=== PATIENT | female | born 1975 | race Caucasian/White ===

== ENCOUNTER 2017-09-25 21:19 | Emergency (ER) | payer BC ==
--- NOTE | 2017-09-25 22:26 | ED ---
Bernie Clayton Nilda, scribed for Corbin Ramos MD on 09/25/17 at 2217 . Laceration/Wound HPI - HPI Summary HPI Summary: This patient is a 41 year old F presenting to [facility] accompanied by with a chief complaint of bleeding from a surgical wound since 1600 today. Pt states she had a laparoscopic tubal ligation procedure today at [facility] and was discharged at 1500. She reports that her upper incision on periumbilical area of abdomen that was originally glued sustained a small tear which "won't stop bleeding." Symptoms aggravated by movement and alleviated by nothing including compression [employer]. The patient rates the pain 1/10 in severity. - History of Current Complaint Stated Complaint: STOMACH LAC/WONT STOP BLEEDING Time Seen by Provider: 09/25/17 21:46 Hx Obtained From: Patient Hx Last Menstrual Period: 03/11/16 Onset/Duration: Sudden Onset, Lasting Hours, Still Present Aggravating: Movement Alleviating: Nothing Timing: Constant Current Severity: Mild Pain Intensity: 1 Pain Scale Used: 0-10 Numeric - Allergy/Home Medications Allergies/Adverse Reactions: Allergies Allergy/AdvReac Type Severity Reaction Status Date / Time Penicillins [PCN] Allergy Severe Anaphylatic Verified 12/24/16 08:19 Shock Potassium Allergy Severe Nausea And Verified 12/24/16 08:19 Vomiting PMH/Surg Hx/FS Hx/Imm Hx Endocrine/Hematology History: Denies: Hx Diabetes, Hx Thyroid Disease Cardiovascular History: Denies: Hx Hypertension, Hx Pacemaker/ICD Respiratory History: Denies: Hx Asthma, Hx Chronic Obstructive Pulmonary Disease (COPD) GI History: Denies: Hx Ulcer History: Denies: Hx Dialysis, Hx Renal Disease Sensory History: Denies: Hx Hearing Aid Psychiatric History: Denies: Hx Panic Disorder - Cancer History Cancer Type, Location and Year: LEFT BREAST - Surgical History Surgery Procedure, Year, and Place: LEFT WRIST SURGERY-HARDWARE REMOVED 05/1996; . HALO FROM CSPINE FX - REMOVED;. LEFT BREAST BIOPSY-WITH CLIP 10/2016. Left mastectomy 11/29/16 Infectious Disease History: No Infectious Disease History: Denies: Hx Hepatitis, Hx Human Immunodeficiency Virus (HIV), Traveled Outside the [place] in Last 30 Days - Family History Known Family History: Negative: Hypertension, Diabetes - Social History Alcohol Use: Occasionally Alcohol Amount: 1 MONTH Substance Use Type: Reports: None Hx Tobacco Use: Yes Smoking Status (MU): Former Smoker Have You Smoked in the Last Year: No Review of Systems Negative: Shortness Of Breath Positive: Other - bleeding surgical wound opening on periumbilical area of abdomen All Other Systems Reviewed And Are Negative: Yes Physical Exam - Summary Physical Exam Summary: GENERAL: Patient is a well-developed and nourished (MALE OR FEMALE) who is lying comfortable in the stretcher. Patient is not in any acute respiratory distress. HEAD AND FACE: No signs of trauma. No ecchymosis, hematomas or skull depressions. No sinus tenderness. EYES: PERRLA, EOMI x 2, No injected conjunctiva, no nystagmus. EARS: Hearing grossly intact. Ear canals and tympanic membranes are within normal limits. MOUTH: Oropharynx within normal limits. NECK: Supple, trachea is midline, no adenopathy, no JVD, no carotid bruit, no c- spine tenderness, neck with full ROM. CHEST: Symmetric, no tenderness at palpation LUNGS: Clear to auscultation bilaterally. No wheezing or crackles. CVS: Regular rate and rhythm, S1 and S2 present, no murmurs or gallops appreciated. ABDOMEN: Soft, non-tender. No signs of distention. No rebound no guarding, and no masses palpated. Bowel sounds are normal. EXTREMITIES: FROM in all major joints, no edema, no cyanosis or clubbing. NEURO: Alert and oriented x 3. No acute neurological deficits. Speech is normal and follows commands. SKIN: Dry and warm; 1cm incision from laparoscopic procedure that is bleeding. Triage Information Reviewed: Yes Vital Signs On Initial Exam: Initial Vitals Temp Pulse Resp BP Pulse Ox 97.7 F 89 18 119/73 99 09/25/17 21:23 09/25/17 21:23 09/25/17 21:23 09/25/17 21:23 09/25/17 21:23 Vital Signs Reviewed: Yes - [place] Coma Scale Coma Scale Total: 15 Procedures - Laceration/Wound Repair 1 Location: abdomen Description: Linear Anesthesia: 1.0%, Lido Length, Depth and Shape: 1 cm Betadine Prep?: No Laceration/Wound Explored: clean Closure: Single Layer Suture Type: Other - surgipro 4-0 Number of Sutures: 2 Layer Closure?: No Sterile Dressing Applied?: Yes Diagnostics - Vital Signs Vital Signs Temp Pulse Resp BP Pulse Ox 09/25/17 21:45 82 98 09/25/17 21:42 107/60 09/25/17 21:23 97.7 F 89 18 119/73 99 - Laboratory Lab Statement: Any lab studies that have been ordered have been reviewed, and results considered in the medical decision making process. Laceration Repair Course/Dx - Course Assessment/Plan: This patient is a 41 year old F presenting to [facility] accompanied by with a chief complaint of bleeding from a surgical wound since 1600 today. Pt states she had a laparoscopic tubal ligation procedure today at [facility] and was discharged at 1500. She reports that her upper incision that was originally glued sustained a small tear which keeps bleeding. Symptoms aggravated by movement and alleviated by nothing including compression [employer]. The patient rates the pain 1/10 in severity. Laceration repair: Lido 1% surgipro 4-0, 2 sutures, good alignment and hemostasis. Pt is stable and will be D/C with instructions to follow up with OB next week. Pt understands and is agreeable with this plan. Dx laceration to periumbilical region of abdomen. - Clinical Impression Provider Diagnoses: Laceration of periumbilic region of abdominal wall without foreign body with penetration into peritoneal cavity Discharge - Discharge Plan Condition: Stable Disposition: HOME Patient Education Materials: Care For Your Stitches (ED), Laceration (ED) Additional Instructions: Follow up with your OB in a week. Stitches to be removed in 10 days. RETURN TO THE EMERGENCY DEPARTMENT FOR CHANGING OR WORSENING SYMPTOMS. The documentation as recorded by the Bernie kemp Nilda accurately reflects the service I personally performed and the decisions made by , Corbin Ramos MD.
[2017-09-25 22:32] VITALS: BP 97/74
== END 2017-09-25 22:33 | disposition home or self-care (01) ==
LOC: ED 21:19
DX: S31.115A Laceration without foreign body of abdominal wall, periumbilic region without penetration into peritoneal cavity, initial encounter (principal); Z98.51 Tubal ligation status; X58.XXXA Exposure to other specified factors, initial encounter; Y93.9 Activity, unspecified; Y92.89 Other specified places as the place of occurrence of the external cause; Z87.891 Personal history of nicotine dependence
CPT/HCPCS: 99282